=== PATIENT | male | born 1950 | race Caucasian/White ===

== ENCOUNTER 2018-03-07 08:34 | Inpatient (IN) | payer MEDICARE, OTHER ==
[2018-03-03 11:34] LABS: BASOPHILS % (AUTO) 0.5 % (0-1); EOSINOPHILS # (AUTO) 0.4 X10'3 (0-0.9); EOSINOPHILS % (AUTO) 4.8 % (0-6); LYMPHOCYTES # (AUTO) 3.5 X10'3 (1.1-4.8); LYMPHOCYTES % (AUTO) 39.6 % (21-51); MEAN CORPUSCULAR HEMOGLOBIN 31.4 PG (27.0-31.0); MEAN CORPUSCULAR HGB CONC 32.2 % (33.0-36.5); MEAN CORPUSCULAR VOLUME 97.6 FL (78-98); MEAN PLATELET VOLUME 8.3 FL (7.4-10.4); MONOCYTES # (AUTO) 1.2 X10'3 (0-0.9); MONOCYTES % (AUTO) 13.4 % (2-12); NEUTROPHILS # (AUTO) 3.7 X10'3 (1.8-7.7); NEUTROPHILS % (AUTO) 41.7 % (42-75); PRE OP HEMATOCRIT 46.4 % (42.0-52.0); PRE OP HEMOGLOBIN 14.9 g/dL (14.0-17.9); PRE OP PLATELET COUNT 356 X10'3 (140-440); RED BLOOD COUNT 4.76 X10'6 (4.70-6.10); RED CELL DISTRIBUTION WIDTH 14.2 % (11.5-14.5)
[2018-03-03 11:40] LABS: ALBUMIN 3.5 G/DL (3.4-5.0); ALKALINE PHOSPHATASE 61 IU/L (46-116); BLOOD UREA NITROGEN 15 MG/DL (7-18); BUN/CREATININE RATIO 17.6 (5.4-32.0); CALCIUM 8.7 MG/DL (8.5-10.1); CHLORIDE 104 MMOL/L (99-107); CREATININE 0.85 MG/DL (0.60-1.10); PRE OP ALT 25 U/L (30-65); PRE OP ANION GAP 9 (8-16); PRE OP AST 20 U/L (10-37); PRE OP BILIRUB, TOTAL 0.4 MG/DL (0.0-1.0); PRE OP GLUCOSE 79 MG/DL (70-104); PRE OP POTASSIUM 3.6 MMOL/L (3.4-5.1); PRE OP SODIUM 141 MMOL/L (135-145); TOTAL CARBON DIOXIDE 27.6 MMOL/L (24-32); TOTAL PROTEIN 7.1 G/DL (6.4-8.2); eGFR 90 ML/MIN
[~2018-03-07] VITALS: Ht 167.6 cm; Wt 69.9 kg
[2018-03-07] VITALS (15 sets, daily range): BP systolic 106–154; BP diastolic 48–93
[~2018-03-07 08:34] MED LIST: ALBU8.5H8 INH; BUDE8.435 INH; IBUP-1984 PO; MULT1TAB74 PO; RANI150C4 PO; TERA5CAP4 PO; VANCOMYCIN INJ 1000 MG in NORMAL SALINE 250ml IV.SOLN IV ONE; albuterol 2.5 MG/3 ML nebule NEB ONE; famotidine 20mg tablet PO ONE; ringers solution, lacted 1,000 ML IV SCH; tranexamic acid inj. 630 MG in normal saline 100ml IV soln 93.7 ML IV ONE
[2018-03-07] MEDS ORDERED: cefazolin/dext.iso 2gm/50ml 50 ML IV ONE (10:15)
[2018-03-07] MEDS ORDERED: ROPIVAcaine 0.5% (5mg/ml) 30ml vial ONE (12:38)
[2018-03-07] MEDS ORDERED: ketorolac trometh. 30mg/ml inj. ONE (12:38)
[2018-03-07] MEDS ORDERED: vancomycin 1,000mg inj ONE (12:38)
[2018-03-07] MEDS ORDERED: sevoflurane 250ml liquid IH ONE (13:06)
[2018-03-07] MEDS ORDERED: dexamethasone sod phosphate 10mg/ml inj ONE (13:06)
[2018-03-07] MEDS ORDERED: LIDOcaine 1%/PF 5ML 10 MG/ML VIAL ONE (13:06)
[2018-03-07] MEDS ORDERED: fentaNYL/PF 50MCG/1 ML 2ML syringe ONE (13:09)
[2018-03-07] MEDS ORDERED: MIDAZolam 5mg/5ml vial ONE (13:09)
[2018-03-07] MEDS ORDERED: ringers solution, lacted 1,000 ML IV SCH (14:34)
[2018-03-07] MEDS ORDERED: proCHLORperazine 10 MG/2 ml inj IV PRN (14:35)
[2018-03-07] MEDS ORDERED: meperidine/PF 25mg/ml syringe IV PRN ×3 (14:35)
[2018-03-07] MEDS ORDERED: ondansetron/PF 4mg/2ml inj IV PRN ×2 (14:35→15:50)
[2018-03-07] MEDS ORDERED: morphine 4 MG/ML inj SYRINge IV PRN ×2 (14:35)
[2018-03-07] MEDS ORDERED: ondansetron/PF 4mg/2ml inj ONE (14:50)
[2018-03-07] MEDS ORDERED: propofol inj 20 ML IV ONE (15:21)
[2018-03-07] MEDS ORDERED: diphenhydrAMINE 25mg capsule PO PRN ×2 (15:50)
[2018-03-07] MEDS ORDERED: magnesium hydroxide 30ml (MOM) UD suspension PO PRN (15:50)
[2018-03-07] MEDS ORDERED: acetaminophen 325mg tablet PO PRN (15:50)
[2018-03-07] MEDS ORDERED: oxyCODONE IR 5mg (immed. release) tablet PO PRN ×2 (15:50)
[2018-03-07] MEDS ORDERED: famotidine 20mg tablet PO PRN (15:50)
[2018-03-07] MEDS ORDERED: albuterol 2.5 MG/3 ML nebule NEB PRN (15:50)
[2018-03-07] MEDS ORDERED: bisacodyl 10mg suppository rectal RC PRN (15:50)
[2018-03-07] MEDS ORDERED: HYDROmorphone 1 mg/ml syringe IV PRN ×2 (15:50)
[2018-03-07] MEDS: ibuprofen tablet 400 MG TABLET PO SCH (17:48)
[2018-03-07] MEDS: ceFAZolin 1GM/D5W- ADD-VANTAGE 50 ML IV SCH (17:48)
[2018-03-07] MEDS: potassium cl 20mEq in 1/2 NS 1,000 ML IV SCH ×2 (18:03→23:49)
[2018-03-07] MEDS ORDERED: tranexamic acid inj. 700 MG in normal saline 100ml IV soln 100 ML IV ONE (19:00)
[2018-03-07] MEDS ORDERED: vancomycin/NS 1 GM ADD-VANTAGE 250 ML IV SCH (20:00)
[2018-03-07] MEDS: budesonide 0.5mg/2ml UD nebule IH SCH (20:11)
[2018-03-07] MEDS: gabapentin 300mg capsule PO SCH (20:20)
[2018-03-07] MEDS: ketorolac tromethamine 15mg/ml inj. IV SCH (20:20)
[2018-03-07] MEDS: acetaminophen 325mg tablet PO SCH (20:21)
[2018-03-07] MEDS ORDERED: sennosides 8.6mg tablet PO SCH (21:00)
[2018-03-08] MEDS: ceFAZolin 1GM/D5W- ADD-VANTAGE 50 ML IV SCH (00:41)
[2018-03-08 02:00] VITALS: BP 105/67
[2018-03-08] MEDS: ketorolac tromethamine 15mg/ml inj. IV SCH ×2 (02:06→08:58)
[2018-03-08] MEDS: acetaminophen 325mg tablet PO SCH ×2 (02:07→09:01)
[2018-03-08 03:37] VITALS: BP 115/80
[2018-03-08] MEDS: potassium cl 20mEq in 1/2 NS 1,000 ML IV SCH (04:17)
[2018-03-08 06:00] VITALS: BP 108/61
[2018-03-08 06:31] LABS: BASOPHILS # (AUTO) 0.1 X10'3 (0-0.2); BASOPHILS % (AUTO) 0.5 % (0-1); EOSINOPHILS # (AUTO) 0.1 X10'3 (0-0.9); EOSINOPHILS % (AUTO) 0.9 % (0-6); HEMATOCRIT 37.9 % (42.0-52.0); HEMOGLOBIN 12.4 g/dl (14.0-17.9); LYMPHOCYTES # (AUTO) 2.1 X10'3 (1.1-4.8); LYMPHOCYTES % (AUTO) 12.1 % (21-51); MEAN CORPUSCULAR HEMOGLOBIN 31.8 PG (27.0-31.0); MEAN CORPUSCULAR HGB CONC 32.7 % (33.0-36.5); MEAN CORPUSCULAR VOLUME 97.1 FL (78-98); MEAN PLATELET VOLUME 8.5 FL (7.4-10.4); MONOCYTES # (AUTO) 1.4 X10'3 (0-0.9); MONOCYTES % (AUTO) 8.1 % (2-12); NEUTROPHILS # (AUTO) 13.4 X10'3 (1.8-7.7); NEUTROPHILS % (AUTO) 78.4 % (42-75); PLATELET COUNT 263 X10'3 (140-440); RED CELL DISTRIBUTION WIDTH 13.9 % (11.5-14.5); WHITE BLOOD COUNT 17.1 X10'3 (4.5-11.0)
[2018-03-08 06:47] LABS: ANION GAP 7 (8-16); CHLORIDE 110 MMOL/L (99-107); POTASSIUM 4.5 MMOL/L (3.5-5.1); SODIUM 141 MMOL/L (135-145); TOTAL CARBON DIOXIDE 24.3 MMOL/L (24-32)
[2018-03-08] MEDS: ibuprofen tablet 400 MG TABLET PO SCH ×2 (07:05)
[2018-03-08] MEDS ORDERED: multivitamins, therapeutics tablet PO SCH (08:00)
[2018-03-08] MEDS ORDERED: terazosin 5mg capsule PO SCH (08:00)
[2018-03-08] MEDS ORDERED: aspirin 325mg tablet PO SCH (08:30)
[2018-03-08] MEDS: gabapentin 300mg capsule PO SCH (09:00)
[2018-03-08] MEDS: budesonide 0.5mg/2ml UD nebule IH SCH (09:11)
[2018-03-08 10:00] VITALS: BP 139/73
[2018-03-08] MEDS ORDERED: budesonide 0.5mg/2ml UD nebule IH SCH (12:40)
[2018-03-08] MEDS ORDERED: celeCOXIB 100mg capsule PO SCH (20:00)
[2018-03-09] MEDS ORDERED: acetaminophen 325mg tablet PO PRN (15:50)
== END 2018-03-08 12:30 | disposition home or self-care (01) | DRG 483 ==
LOC: PAS IN 08:34 → EDSTATUS 11:30 → ORTHO 4S 16:44
PROVIDERS: ADMIT Orthopaedic Surgery; ATTEND Orthopaedic Surgery
PROC: 3E0T3BZ Introduction of Anesthetic Agent into Peripheral Nerves and Plexi, Percutaneous Approach (ICD-10-PCS; 2018-03-07)
PROC: 0RRK00Z Replacement of Left Shoulder Joint with Reverse Ball and Socket Synthetic Substitute, Open Approach (ICD-10-PCS; principal; 2018-03-07 13:06)
DX: M19.012 Primary osteoarthritis, left shoulder (principal); D62 Acute posthemorrhagic anemia; M75.122 Complete rotator cuff tear or rupture of left shoulder, not specified as traumatic; J45.909 Unspecified asthma, uncomplicated; F17.200 Nicotine dependence, unspecified, uncomplicated; M25.712 Osteophyte, left shoulder; Z88.0 Allergy status to penicillin; Z79.899 Other long term (current) drug therapy
CPT/HCPCS: 36415; 71046; 80051; 80053; 85025; 85610; 85730; 87070; 93005; 94640; 94760; 97110; 97116; 97161; 97530; A4565; A7000; G0378; J0690; J1100; J1885; J2001; J2250; J2405; J2704; J2795; J3010; J3370; J7030; J7040; J7120; J7626; Q0163

== ENCOUNTER 2024-05-05 11:22 | Inpatient (IN) | payer OTHER, MEDICARE ==
[~2024-05-05] VITALS: Ht 167.6 cm; Wt 76.0 kg
[~2024-05-05 11:22] MED LIST changes: +ALBU8.5H17 INH; -ALBU8.5H8 INH; -BUDE8.435 INH; +FLO0.4C PO; -IBUP-1984 PO; +IPRA3AMP9 NEB; +KEN0.1O TP; +LIDO700A32 TOP; +MELO-100 PO; +MULT-620 PO; -MULT1TAB74 PO; +OMEP40CA21 PO; +PHEN57OI23 RC; -RANI150C4 PO; -TERA5CAP4 PO; -VANCOMYCIN INJ 1000 MG in NORMAL SALINE 250ml IV.SOLN IV ONE; -albuterol 2.5 MG/3 ML nebule NEB ONE; -famotidine 20mg tablet PO ONE; -ringers solution, lacted 1,000 ML IV SCH; -tranexamic acid inj. 630 MG in normal saline 100ml IV soln 93.7 ML IV ONE
[2024-05-05] MEDS: methylPREDNISolone sod succ 125mg/2ml vial IV ONE (11:56)
[2024-05-05 12:02] LABS: BASOPHILS # (AUTO) 0.1 X10'3 (0-0.2); BASOPHILS % (AUTO) 0.8 % (0-1); EOSINOPHILS % (AUTO) 0.1 % (0-6); HEMATOCRIT 42.9 % (42.0-52.0); HEMOGLOBIN 13.9 g/dl (14.0-17.9); LYMPHOCYTES % (AUTO) 24.6 % (21-51); MEAN CORPUSCULAR HEMOGLOBIN 30.9 PG (27.0-31.0); MEAN CORPUSCULAR HGB CONC 32.4 g/dL (33.0-36.5); MEAN CORPUSCULAR VOLUME 95.5 FL (78-98); MEAN PLATELET VOLUME 7.4 FL (7.4-10.4); MONOCYTES # (AUTO) 1.6 X10'3 (0-0.9); MONOCYTES % (AUTO) 12.6 % (2-12); NEUTROPHILS # (AUTO) 7.6 X10'3 (1.8-7.7); NEUTROPHILS % (AUTO) 61.9 % (42-75); PLATELET COUNT 431 X10'3 (140-440); RED BLOOD COUNT 4.49 X10'6 (4.70-6.10); RED CELL DISTRIBUTION WIDTH 14.5 % (11.5-14.5); WHITE BLOOD COUNT 12.3 X10'3 (4.5-11.0)
[2024-05-05] MEDS: ipratropium/albuterol 3ml nebule NEB ONE (12:12)
[2024-05-05 12:14] VITALS: PULSE 90; PULSE 93; RESP 18; RESP 26; O2SAT 99
[2024-05-05 12:22] LABS: ALANINE AMINOTRANSFERASE 31 U/L (12-78); ALBUMIN 3.4 G/DL (3.4-5.0); ALBUMIN/GLOBULIN RATIO 0.7 (1.1-1.5); ALKALINE PHOSPHATASE 88 IU/L (46-116); ANION GAP 9 (8-16); ASPARTATE AMINO TRANSFERASE 29 U/L (10-37); BILIRUBIN,TOTAL 0.4 MG/DL (0.1-1.0); BLOOD UREA NITROGEN 12 MG/DL (7-18); BUN/CREATININE RATIO 15.6 (10.0-20.0); CALCIUM 8.9 MG/DL (8.5-10.1); CHLORIDE 100 MMOL/L (99-107); CREATININE 0.77 MG/DL (0.60-1.10); GLUCOSE 130 MG/DL (70-104); POTASSIUM 4.1 MMOL/L (3.5-5.1); SODIUM 135 MMOL/L (135-145); eCRCL 80 ML/MIN; eGFR > 90 ML/MIN
[2024-05-05 12:28] LABS: PRO BRAIN NATRIURETIC PEPTIDE 64 PG/ML (0-125)
[2024-05-05] MEDS ORDERED: ondansetron 4mg rapidly disintigrating tab PO PRN (14:10)
[2024-05-05] MEDS ORDERED: mag hydrox/Alum hydrox/simeth 30ml oral suspension PO PRN (14:10)
[2024-05-05] MEDS ORDERED: HYDROcodone/acetaminophen 10/325mg tab PO PRN (14:10)
[2024-05-05] MEDS ORDERED: HYDROcodone/acetaminophen 5mg/325mg tablet PO PRN (14:10)
[2024-05-05] MEDS ORDERED: acetaminophen 325mg tablet PO PRN ×2 (14:10)
[2024-05-05] MEDS ORDERED: morphine 2 MG/ML inj. syringe IV PRN ×2 (14:10)
[2024-05-05] MEDS ORDERED: diphenhydrAMINE 50 mg/ml inj IV PRN (14:10)
[2024-05-05] MEDS ORDERED: acetaminophen 650mg rectal suppository RC PRN (14:10)
[2024-05-05] MEDS ORDERED: bisacodyl 10mg suppository rectal RC PRN (14:10)
[2024-05-05] MEDS ORDERED: magnesium hydroxide 30ml (MOM) UD suspension PO PRN (14:10)
[2024-05-05] MEDS ORDERED: diphenhydrAMINE 25mg capsule PO PRN (14:10)
[2024-05-05] MEDS ORDERED: ondansetron/PF 4mg/2ml inj IV PRN (14:10)
[2024-05-05] MEDS: normal saline 1000ml 1,000 ML IV SCH (14:46)
[2024-05-05 15:03] LABS: URINE AMPHETAMINE SCREEN NEGATIVE (Neg); URINE BARBITUATE SCREEN NEGATIVE (Neg); URINE BENZODIAZEPINES SCREEN NEGATIVE (Neg); URINE CANNABINOID SCREEN NEGATIVE (Neg); URINE COCAINE SCREEN NEGATIVE (Neg); URINE METHADONE SCREEN NEGATIVE (Neg); URINE OPIATE SCREEN POSITIVE (Neg); URINE PHENCYCLIDINE SCREEN NEGATIVE (Neg)
[2024-05-05 15:03] LABS: APTT 28 SECONDS (22-32); PROTHROMBIN TIME 10.4 SECONDS (9.0-12.0)
[2024-05-05] MEDS: levoFLOXACIN-Levaquin 500mg/D5 100 ML IV SCH (15:07)
[2024-05-05] MEDS: ipratropium/albuterol 3ml nebule NEB SCH (15:11)
[2024-05-05 15:14] VITALS: PULSE 89; RESP 24; O2SAT 95
[2024-05-05 15:18] VITALS: PULSE 91; RESP 26
[2024-05-05 15:18] LABS: BILIRUBIN,URINE NEGATIVE (Neg); CLARITY,URINE SLIGHTLY CLOUDY (Clear); GLUCOSE, URINE NEGATIVE (Neg); KETONES,URINE TRACE mg/dl (Neg); LEUKOCYTE ESTERASE ,URINE MODERATE (Neg); NITRITES, URINE POSITIVE (Neg); OCCULT BLOOD,URINE LARGE (Neg); PROTEIN,URINE 30 mg/dl (Neg); UROBILINOGEN,URINE 0.2 E.U/dL (0.2-1.0)
[2024-05-05 15:26] LABS: COLOR,URINE AMBER (Yellow); UA COLLECTION TYPE FOLEY CATH
[2024-05-05 15:28] LABS: BACTERIA,URINE 3+ /HPF (Neg); RBC,URINE 20-50 /HPF (0-2); SQUAMOUS EPITHELIAL CELL,UR FEW /LPF (FEW)
[2024-05-05 15:29] LABS: HYALINE CASTS 0-3 /LPF (NEGATIVE); MUCUS STRANDS NONE SEEN /LPF (Neg); YEAST MODERATE /HPF (NEGATIVE)
[2024-05-05 16:16] LABS: HEMOGLOBIN A1C 5.6 % (4.5-6.2)
[2024-05-05 16:17] LABS: MAGNESIUM 1.8 MG/DL (1.5-2.4); PHOSPHORUS 2.1 MG/DL (2.3-4.5)
[2024-05-05] MEDS: methylPREDNISolone sod succ 125mg/2ml vial IV SCH (16:39)
[2024-05-05] MEDS ORDERED: ESCI20TA39 PO (17:58)
[2024-05-05] MEDS ORDERED: MAGN200T5 PO (17:58)
[2024-05-05] MEDS ORDERED: ATOR-411 PO (17:59)
[2024-05-05] MEDS ORDERED: OSC500T PO (17:59)
[2024-05-05] MEDS ORDERED: CHOL200080 PO (18:00)
[2024-05-05] MEDS ORDERED: TROS20TA4 PO (18:01)
[2024-05-05] MEDS ORDERED: VARE1TAB24 PO (18:02)
[2024-05-05] MEDS: docusate sod 100mg capsule PO SCH (20:00)
[2024-05-05 20:26] VITALS: PULSE 86; RESP 18; O2SAT 94
[2024-05-05] MEDS: heparin, porcine 5000 units/ml vial SQ SCH (20:34)
[2024-05-05 20:36] VITALS: PULSE 95; RESP 22
[2024-05-05] MEDS ORDERED: temazepam 15mg capsule PO PRN (21:00)
[2024-05-05 22:00] VITALS: BP 113/69; PULSE 87; RESP 20; TEMP 97.3; O2SAT 93
[2024-05-06] VITALS (14 sets, daily range): BP systolic 108–124; BP diastolic 63–71; PULSE 71–85; RESP 15–24; TEMP 97.2–98.1; O2SAT 93–96
[2024-05-06 07:15] LABS: BASOPHILS % (AUTO) 0.4 % (0-1); EOSINOPHILS % (AUTO) 0 % (0-6); HEMATOCRIT 37.3 % (42.0-52.0); HEMOGLOBIN 12.3 g/dl (14.0-17.9); LYMPHOCYTES # (AUTO) 2.1 X10'3 (1.1-4.8); LYMPHOCYTES % (AUTO) 22.2 % (21-51); MEAN CORPUSCULAR HEMOGLOBIN 31.3 PG (27.0-31.0); MEAN CORPUSCULAR HGB CONC 33.1 g/dL (33.0-36.5); MEAN CORPUSCULAR VOLUME 94.8 FL (78-98); MEAN PLATELET VOLUME 7.1 FL (7.4-10.4); MONOCYTES # (AUTO) 0.3 X10'3 (0-0.9); MONOCYTES % (AUTO) 3.6 % (2-12); NEUTROPHILS % (AUTO) 73.8 % (42-75); PLATELET COUNT 374 X10'3 (140-440); RED BLOOD COUNT 3.93 X10'6 (4.70-6.10); RED CELL DISTRIBUTION WIDTH 14.3 % (11.5-14.5); WHITE BLOOD COUNT 9.5 X10'3 (4.5-11.0)
[2024-05-06 07:34] LABS: ALANINE AMINOTRANSFERASE 25 U/L (12-78); ALBUMIN 2.7 G/DL (3.4-5.0); ALBUMIN/GLOBULIN RATIO 0.7 (1.1-1.5); ALKALINE PHOSPHATASE 72 IU/L (46-116); ANION GAP 7 (8-16); ASPARTATE AMINO TRANSFERASE 25 U/L (10-37); BILIRUBIN,TOTAL 0.2 MG/DL (0.1-1.0); BLOOD UREA NITROGEN 15 MG/DL (7-18); BUN/CREATININE RATIO 22.1 (10.0-20.0); CALCIUM 8.4 MG/DL (8.5-10.1); CHLORIDE 105 MMOL/L (99-107); CHOL/HDL RATIO 2.4 (0.00-4.99); CHOLESTEROL 117 MG/DL (0-200); CREATININE 0.68 MG/DL (0.60-1.10); GLUCOSE 133 MG/DL (70-104); HDL CHOLESTEROL 48 MG/DL (35-60); LDL CHOLESTEROL 57 MG/DL (50-100); POTASSIUM 4.6 MMOL/L (3.5-5.1); SODIUM 136 MMOL/L (135-145); TOTAL CARBON DIOXIDE 24.3 MMOL/L (24-32); TOTAL PROTEIN 6.8 G/DL (6.4-8.2); TRIGLYCERIDES 33 MG/DL (20-135); eCRCL 87 ML/MIN; eGFR > 90 ML/MIN
[2024-05-06] MEDS: pneumococcal 23-VAL P-sac vacc 25 mcg/0.5ml vial IMVAC ONE (10:00)
[2024-05-06] MEDS ORDERED: albuterol 2.5 MG/3 ML nebule NEB PRN (11:10)
[2024-05-07 02:00] VITALS: BP 115/66; PULSE 76; RESP 19; TEMP 97.4; O2SAT 92
[2024-05-07 06:00] VITALS: BP 124/71; PULSE 70; RESP 18; TEMP 97.2; O2SAT 93
[2024-05-07 07:12] LABS: BASOPHILS # (AUTO) 0.1 X10'3 (0-0.2); BASOPHILS % (AUTO) 0.3 % (0-1); EOSINOPHILS % (AUTO) 0 % (0-6); LYMPHOCYTES # (AUTO) 2.3 X10'3 (1.1-4.8); LYMPHOCYTES % (AUTO) 10.3 % (21-51); MEAN CORPUSCULAR HEMOGLOBIN 30.9 PG (27.0-31.0); MEAN CORPUSCULAR HGB CONC 32.6 g/dL (33.0-36.5); MEAN CORPUSCULAR VOLUME 94.8 FL (78-98); MEAN PLATELET VOLUME 7.3 FL (7.4-10.4); MONOCYTES # (AUTO) 1.2 X10'3 (0-0.9); MONOCYTES % (AUTO) 5.2 % (2-12); NEUTROPHILS # (AUTO) 18.6 X10'3 (1.8-7.7); NEUTROPHILS % (AUTO) 84.2 % (42-75); PLATELET COUNT 367 X10'3 (140-440); RED CELL DISTRIBUTION WIDTH 14.3 % (11.5-14.5); WHITE BLOOD COUNT 22.2 X10'3 (4.5-11.0)
[2024-05-07 07:21] LABS: ALANINE AMINOTRANSFERASE 28 U/L (12-78); ALBUMIN 2.6 G/DL (3.4-5.0); ALBUMIN/GLOBULIN RATIO 0.6 (1.1-1.5); ALKALINE PHOSPHATASE 65 IU/L (46-116); ANION GAP 7 (8-16); ASPARTATE AMINO TRANSFERASE 30 U/L (10-37); BILIRUBIN,TOTAL 0.3 MG/DL (0.1-1.0); BLOOD UREA NITROGEN 19 MG/DL (7-18); BUN/CREATININE RATIO 28.4 (10.0-20.0); CALCIUM 8.2 MG/DL (8.5-10.1); CHLORIDE 107 MMOL/L (99-107); CREATININE 0.67 MG/DL (0.60-1.10); GLUCOSE 134 MG/DL (70-104); POTASSIUM 4.2 MMOL/L (3.5-5.1); SODIUM 139 MMOL/L (135-145); TOTAL CARBON DIOXIDE 24.8 MMOL/L (24-32); TOTAL PROTEIN 6.7 G/DL (6.4-8.2); eCRCL 89 ML/MIN; eGFR > 90 ML/MIN
[2024-05-07 10:55] VITALS: PULSE 81; RESP 22; O2SAT 97
[2024-05-07] MEDS: ipratropium/albuterol 3ml nebule NEB PRN (10:55)
[2024-05-07 11:01] VITALS: PULSE 82; RESP 18
[2024-05-07] MEDS ORDERED: LEVO-65 PO (11:22)
== END 2024-05-07 12:03 | disposition home or self-care (01) | DRG 291 ==
LOC: ER 11:23 → ED HOLD 14:20 → PCU 3S 22:00
PROVIDERS: ADMIT Family Medicine; ATTEND Family Medicine
DX: I11.0 Hypertensive heart disease with heart failure (principal); I50.33 Acute on chronic diastolic (congestive) heart failure; J96.01 Acute respiratory failure with hypoxia; T83.518A Infection and inflammatory reaction due to other urinary catheter, initial encounter; J44.1 Chronic obstructive pulmonary disease with (acute) exacerbation; E78.5 Hyperlipidemia, unspecified; Z96.612 Presence of left artificial shoulder joint; N40.0 Benign prostatic hyperplasia without lower urinary tract symptoms; F12.10 Cannabis abuse, uncomplicated; K21.9 Gastro-esophageal reflux disease without esophagitis; F10.90 Alcohol use, unspecified, uncomplicated; Y83.8 Other surgical procedures as the cause of abnormal reaction of the patient, or of later complication, without mention of misadventure at the time of the procedure; Z88.0 Allergy status to penicillin; Z79.899 Other long term (current) drug therapy; Z85.51 Personal history of malignant neoplasm of bladder; Z87.891 Personal history of nicotine dependence; Y92.89 Other specified places as the place of occurrence of the external cause
CPT/HCPCS: 36415; 71045; 80053; 80061; 80305; 81001; 83036; 83605; 83735; 83880; 84100; 84484; 85025; 85379; 85610; 85730; 87040; 87077; 87081; 87088; 87186; 93005; 93306; 94640; 94760; 96374; 99285; A4314; A4358; A5200; G0378; J1644; J1956; J2919; J7030

== ENCOUNTER 2024-11-11 15:36 | Emergency (ER) | payer OTHER, MEDICARE ==
[~2024-11-11] VITALS: Ht 167.6 cm; Wt 54.1 kg
[~2024-11-11 15:36] MED LIST changes: +ATOR-411 PO; +CHOL200080 PO; +ESCI20TA39 PO; -FLO0.4C PO; -IPRA3AMP9 NEB; -KEN0.1O TP; -LIDO700A32 TOP; +MAGN200T5 PO; +OSC500T PO; -PHEN57OI23 RC; +TAMS-55 PO; +TROS20TA4 PO; +VARE1TAB24 PO
[2024-11-11 15:46] VITALS: BP 134/73; PULSE 107; O2SAT 96
[2024-11-11 18:22] LABS: MEAN PLATELET VOLUME 7.1 FL (7.4-10.4); RED CELL DISTRIBUTION WIDTH 23.9 % (11.5-14.5)
[2024-11-11 18:34] LABS: CREATININE 0.79 MG/DL (0.60-1.10); TOTAL CARBON DIOXIDE 21.7 MMOL/L (24-32); eCRCL 63 ML/MIN; eGFR > 90 ML/MIN
--- NOTE | 2024-11-11 18:34 | RADIOLOGY REPORT ---
CLINICAL INDICATION: Pain, current cancer treatment TECHNIQUE: 3 radiographic views of the left hip were obtained. Comparison: None FINDINGS/IMPRESSION: There is no evidence of acute fracture or dislocation. Postsurgical changes of screw fixation of the left SI joint with plate and screw fixation of the anterior pelvic bones Mild degenerative changes of bilateral hips. Moderate degenerative changes of the lower lumbar spine. The alignment is anatomical. There is no radiopaque foreign body.
[2024-11-11 18:41] LABS: EOSINOPHILS % (MANUAL) 4.0 % (0-6); LYMPHOCYTES % (MANUAL) 14.0 % (21-51); MONOCYTES % (MANUAL) 11.0 % (2-12); NEUTROPHILS % (MANUAL) 68.0 % (42-75); REACTIVE LYMPHOCYTES % 3.0 % (0-0)
[2024-11-11 18:42] LABS: PLATELET ESTIMATE NORMAL
[2024-11-11 19:24] LABS: LEUKOCYTE ESTERASE ,URINE MODERATE (Neg); NITRITES, URINE POSITIVE (Neg); OCCULT BLOOD,URINE LARGE (Neg)
[2024-11-11 19:28] VITALS: RESP 16
[2024-11-11] MEDS: ketorolac trometh 15mg/ml vial 15 MG/ML ML IM ONE (19:28)
[2024-11-11 19:34] LABS: UA COLLECTION TYPE CLN CATCH MIDSTREAM
[2024-11-11 19:40] LABS: SQUAMOUS EPITHELIAL CELL,UR NONE SEEN /LPF (FEW)
--- NOTE | 2024-11-11 20:17 | Physician Documentation ---
History of Present Illness ~ Chief Complaint: Hip pain Stated Complaint: HIP PAIN Time Seen by MD: 17:41 Primary Medical Doctor: [place] HPI Patient is a 74-year-old gentleman that presents to the emergency department for evaluation of left sided hip pain that he reports is chronic. He is also currently being treated for [place] cancer [place] the [place]. patient reports that he was instructed by his doctor to come to the emergency room to see we can get a referral for Orthopedics to be scheduled for surgery to repair his left hip. Was unable to express what the actual hip injury is they needs to have repaired. Medication Reconciliation Allergies: Coded Allergies: Penicillins (Verified Allergy, Unknown, 11/11/24) Scheduled Atorvastatin Calcium (Lipitor), 1 TAB PO HS, (Reported) Calcium Carbonate* (Oscal*), 1 TAB PO BID, (Reported) Cholecalciferol (Vitamin D3) (Vitamin D3), 1 CAP PO DAILY, (Reported) Escitalopram Oxalate (Escitalopram Oxalate), 20 MG PO DAILY, (Reported) Magnesium (Magnesium Oxide), 420 MG PO DAILY, (Reported) Multivitamins (Multivitamins), 1 TAB PO DAILY, (Reported) Omeprazole (Prilosec), 1 CAP PO DAILY, (Reported) Tamsulosin Hcl* (Flomax*), 1 CAP PO DAILY, (Reported) Varenicline Tartrate (Varenicline Tartrate), 1 TAB PO Q12H, (Reported) Scheduled PRN Albuterol Sulfate (Proair Hfa), 2 PUFFS INH Q4HPRN PRN for SOB or wheezing, (Reported) Meloxicam* (Meloxicam*), 1 TAB PO DAILY PRN for pain, (Reported) Trospium Chloride (Trospium Chloride), 1 TAB PO Q12H PRN for overactive bladder, (Reported) Past Medical History Past Medical History: Congestive Heart Failure, *PULMONARY*, COPD, GERD Past Surgical History: no surgical history, orthopedic surgeries, pneumothorax Alcohol Use: Occasionally Drug Use: marijuana Lives with: Alone, Other Lives In: Home Occupation: retired Review of Systems ROS As stated above in the HPI, otherwise all systems are reviewed and negative. Physical Exam Vital Signs: Temperature: 98.9, Source: Oral, Heart Rate: 107, Respiratory Rate: 16, BP: 134/73, Pulse Oximetry: 96, Weight: 54.100 Oxygen Flow Rate: 0 Physical Exam VITALS: Reviewed and as above. GENERAL: Alert, no apparent distress. HEENT: Normocephalic, atraumatic, PERRL, EOMI, dry mucosa, no erythema RESPIRATORY: Lungs clear, normal breath sounds, no respiratory distress. CHEST: No accessory muscle use, no retractions CV: Regular rate, rhythm, no edema, no murmur, No: JVD GI: Soft, non-tender, bowels sounds present, no rebound, guarding, or rigidity BACK: No CVA tenderness, or swelling MUSCULOSKELETAL No deformities, no edema, pain with exam and redueced ROM to the left hip SKIN: Warm and dry, no rash NEURO: Oriented x4, No motor or sensory deficit PSYCH: Normal mood and affect, no agitation Progress Results/Orders Results/Orders Orders - ANAY PRADO SPECIAL EVENTS DIRECTOR Hip,Uni 4vws (Include Pelvis) (11/11/24 18:05) Cult Urine + Price Ct (11/11/24 19:40) Completed Orders - ANAY PRADO SPECIAL EVENTS DIRECTOR Hip,Uni 4vws (Include Pelvis) (11/11/24 18:05) Cbc/Diff (11/11/24 17:53) CMP (11/11/24 17:53) Man Diff (11/11/24 18:11) Ketorolac Trometh 15mg/Ml Vial (Toradol (11/11/24 19:15) Acetaminophen 325mg Tablet (Tylenol Tabl (11/11/24 19:15) Ua W/Microscopic, Cult If Ind (11/11/24 19:10) Medications Received in ER Medications (Trade) Dose Ordered Sig/Kinga Route PRN Reason Start Time Stop Time Status Last Admin Dose Admin (Toradol injection) 15 mg ONCE ONCE IM 11/11/24 19:15 11/11/24 19:17 DC 11/11/24 19:28 15 MG (Tylenol tablet) 650 mg ONCE ONCE PO 11/11/24 19:15 11/11/24 19:16 DC 11/11/24 19:29 650 MG Vital Signs 11/11/24 11/11/24 15:46 19:28 Temp 98.9 Pulse 107 Resp 15 16 B/P (MAP) 134/73 Pulse Ox 96 O2 Flow Rate 0 Laboratory Tests Test 11/11/24 18:11 11/11/24 19:10 White Blood Count 13.9 H Red Blood Count 4.10 L Hemoglobin 11.7 L Hematocrit 35.9 L Mean Corpuscular Volume 87.8 Mean Corpuscular Hemoglobin 28.6 Mean Corpuscular Hemoglobin Concent 32.6 L Red Cell Distribution Width 23.9 H Platelet Count 399 Mean Platelet Volume 7.1 L Neutrophils (%) (Auto) 61.0 Lymphocytes (%) (Auto) 20.4 L Monocytes (%) (Auto) 16.2 H Eosinophils (%) (Auto) 1.9 Basophils (%) (Auto) 0.5 Neutrophils # (Auto) 8.5 H Lymphocytes # (Auto) 2.8 Monocytes # (Auto) 2.3 H Eosinophils # (Auto) 0.3 Basophils # (Auto) 0.1 CBC Comment Differential Total Cells Counted 100 Neutrophils % (Manual) 68.0 Lymphocytes % (Manual) 14.0 L Monocytes % (Manual) 11.0 Eosinophils % (Manual) 4.0 Reactive Lymphocytes 3.0 H Platelet Estimate Normal Red Blood Cell Morphology Perf Hypochromasia 1+ Basophilic Stippling Anisocytosis 3+ Sodium Level 133 L Potassium Level 3.6 Chloride Level 101 Carbon Dioxide Level 21.7 L Anion Gap 10 Blood Urea Nitrogen 19 H Creatinine 0.79 Estimated GFR/1.73 m2 > 90 BUN/Creatinine Ratio 24.1 H Glucose Level 103 Calcium Level 8.2 L Total Bilirubin 0.9 Aspartate Amino Transf (AST/SGOT) 21 Alanine Aminotransferase (ALT/SGPT) 20 Alkaline Phosphatase 100 Total Protein 7.7 Albumin 2.8 L Globulin 4.9 H Albumin/Globulin Ratio 0.6 L Chemistry Comments Urine Specimen Description Cln catch midstream Urine Color Straw Urine Clarity Cloudy Urine pH 6.0 Urine Specific [place] >=1.030 Urine Protein >=300 H Urine Glucose (UA) Negative Urine Ketones 15 H Urine Occult Blood Large H Urine Nitrite Positive H Urine Bilirubin Small Urine Urobilinogen 1.0 Urine Leukocyte Esterase Moderate H Urine RBC Tntc Urine WBC Tntc H Urine Squamous Epithelial Cells None seen Urine Bacteria 4+ Urine Culture Indicated Indicated Volume Urine Centrifuged 10 ml Urine Comment Medical Decision Making Findings Patient presents right hip pain. Given history, exam and workup patient likely has chronic pain secondary to orthopedic repair of the left hip and diagnosed bone cancer, I have low suspicion for fracture, dislocation, significant ligamentous injury, septic arthritis, gout flare, new autoimmune arthropathy, or gonococcal arthropathy based on radiologic imaging. The possibility of additional evaluation today due to her elevated white blood cell count and currently being treated for bone cancer. They do not wish to stay. We have provided education and asked that you follow-up with your primary care provider or return to the emergency department if you have any additional concerns. Departure Disposition: HOME / SELF CARE / HOMELESS Impression: Primary Impression: Hip pain Condition: Stable Additional Instructions: Were seen for evaluation of left-sided hip pain. Radiologic imaging shows no new fractures or injury. Your medicated for pain while here in the emergency department and discussed with you the need to follow-up with your orthopedic surgeon and your oncologist. Please return to the emergency department if you have any worsening of your current symptoms or any additional concerning symptoms that we discussed here today. The possibility of additional evaluation today due to her elevated white blood cell count and currently being treated for bone cancer. They do not wish to stay. We have provided education and asked that you follow-up with your primary care provider or return to the emergency department if you have any additional concerns. Referrals: NO PRIMARY CARE PROVIDER (PCP) Education Educated: Patient Educated regarding: treatment, need for follow up ANAY PRADO SPECIAL EVENTS DIRECTOR Nov 11, 2024 20:17
[2024-11-11 20:21] VITALS: TEMP 98.9
== END 2024-11-11 20:26 | disposition left against medical advice (07) ==
LOC: ER 15:37
DX: M25.552 Pain in left hip (principal); J44.9 Chronic obstructive pulmonary disease, unspecified; K21.9 Gastro-esophageal reflux disease without esophagitis; F12.90 Cannabis use, unspecified, uncomplicated; I50.9 Heart failure, unspecified; Z88.0 Allergy status to penicillin; Z72.89 Other problems related to lifestyle; Z60.2 Problems related to living alone
CPT/HCPCS: 73503; 80053; 81001; 85007; 85025; 87088; 96372; 99284; J1885; 87077; 87186